=== PATIENT | male | born 1990 | race African-American/Black ===

== ENCOUNTER 2019-04-08 10:06 | Emergency (ER) | payer SELFPAY ==
[2019-04-08 10:25] VITALS: BP 120/94
[2019-04-08] MEDS ORDERED: METOCLOPRAMIDE HCL INJ/PF 10 MG/2 ML SDV IV ONE (12:15)
--- NOTE | 2019-04-08 12:20 | ER Document Report ---
ED Medical Screen (RME) - General Chief Complaint: Nausea/Vomiting Stated Complaint: NAUSEA/VOMITING Time Seen by Provider: 04/08/19 12:09 Notes: HPI: 28-year-old male presenting for vomiting for 2 weeks. States he has history of reflux. Complains of epigastric abdominal pain. States that he has been seen 9 times in the last 11 days at [facility]. States that he is not taking any medicines. States he cannot stop throwing up but most importantly of all he needs a shower and that he will feel better I have greeted and performed a rapid initial assessment of this patient. A comprehensive ED assessment and evaluation of the patient, analysis of test results and completion of the medical decision making process will be conducted by additional ED providers PHYSICAL EXAMINATION: Very limited by patient cooperation GENERAL: Well-appearing, well-nourished and in mild acute distress. HEAD: Atraumatic, normocephalic. EYES: sclera anicteric, conjunctiva are normal. ENT: Moist mucous membranes. NECK: Normal range of motion LUNGS: Normal work of breathing HEART: 2+ radial pulses bilaterally ABD: limited by positioning for exam in triage. Minimal epigastric pain on palpation EXTREMITIES: no pitting or edema. No cyanosis. NEUROLOGICAL: No focal neurological deficits. Moves all extremities spontaneously and on command. PSYCH: Aggressive mood, normal affect. SKIN: Warm, Dry, normal turgor, no rashes or lesions noted. 28-year-old male very aggressive in the lobby requiring security to be called prior to triage. Patient was throwing himself on the floor screaming at everyone. When I went to evaluate the patient he is throwing himself around in his wheelchair stating repeatedly that he needs a bed and he needs a shower. Patient will not answer many of my questions directly. I informed the patient that the ER is full at this time and I cannot rule the patient to another part of the hospital for a shower or a bed at this time. I informed the patient that we will do our best to medically screened his complaint. We will need to obtain screening lab work and give him medication for his nausea. Patient states multiple times that we will not be able to draw blood because he has poor veins and that he needs a shower and a bed. I informed the patient that we will start the screening process at front and will work to get the patient to bed in the acute ER soon as one is available for him. After I left the room to put the patient's orders in the nurse came to me and informed me that the patient got up from his wheelchair and was able to ambulate out of the emergency department loudly stating that he did not want any further care or treatment here. He was able to walk from the front [facility] area out the front door without any vomiting episodes. Patient remained verbally aggressive with staff on the way out of the ER Physical Exam - Vital signs Vitals: Temp Pulse Resp BP Pulse Ox 98.3 F 118 H 20 120/94 H 100 04/08/19 10:04/08/19 10:04/08/19 10:04/08/19 10:04/08/19 10:21 Course - Vital Signs Vital signs: Temp Pulse Resp BP Pulse Ox 98.3 F 118 H 20 120/94 H 100 04/08/19 10:04/08/19 10:04/08/19 10:04/08/19 10:04/08/19 10:21
== END 2019-04-08 12:15 | disposition left against medical advice (07) ==
LOC: ER 10:06
DX: Z53.21 Procedure and treatment not carried out due to patient leaving prior to being seen by health care provider (principal); R11.2 Nausea with vomiting, unspecified
CPT/HCPCS: 99281

== ENCOUNTER 2019-11-15 14:31 | Emergency (ER) | payer SELFPAY ==
[2019-11-15] MEDS ORDERED: NORMAL SALINE 1000 ML 1,000 ML IV PRN (15:08)
--- NOTE | 2019-11-15 15:34 | ER Document Report ---
ED GI/ - General Chief Complaint: Abdominal Pain Stated Complaint: ABDOMINAL PAIN Time Seen by Provider: 11/15/19 14:57 Notes: HPI: 28-year-old male who presents today with some nausea and vomiting starting last night into today. This was after using marijuana. He denies any other drug abuse or alcohol intake. He denies any chest pain, abdominal pain, cough, shortness of breath, dysuria, flank pain. ROS: See HPI All other review of systems reviewed and otherwise negative Reviewed vital signs and nursing note as charted by RN. PHYSICAL EXAM: CONSTITUTIONAL: Alert and oriented and responds appropriately to questions. Well-appearing; well-nourished HEAD: Normocephalic; atraumatic EYES: sclerae non-icteric ENT: Normal nose; no rhinorrhea; moist mucous membranes; pharynx without lesions noted NECK: Supple without meningismus; non-tender; no cervical lymphadenopathy, no masses CARD: Regular rate and rhythm; no murmurs; symmetric distal pulses RESP: Normal chest excursion without splinting or tachypnea; breath sounds clear and equal bilaterally ABD/GI: Normal bowel sounds; non-distended; soft, nontender currently to deep palpation of all 4 quadrants of the abdomen BACK: The back appears normal and is non-tender to palpation EXT: Normal ROM in all joints; non-tender to palpation; no edema SKIN: No acute lesions noted NEURO: CN 2-12 intact; 5/5 bilateral upper and lower extremity strength with sensation intact to light touch PSYCH: The patient's mood and manner are appropriate. Grooming and personal hygi mando are appropriate. TRAVEL OUTSIDE OF THE [place] IN LAST 30 DAYS: No - unknown - Related Data Allergies/Adverse Reactions: No Known Allergies Allergy (Unverified 11/15/19 15:49) Past Medical History - Social History Smoking Status: Unknown if Ever Smoked Family History: Reviewed & Not Pertinent Physical Exam - Vital signs Vitals: Temp 98.1 F 11/15/19 14:32 Course - Re-evaluation Re-evalutation: Given the history and physical examination in this well-appearing male in no acute distress with some vomiting after ingesting marijuana, with no abdominal discomfort on repeat exam, cough or shortness of breath, will obtain basic labs, liver panel and lipase, provide fluids and nausea medications, and reassess. Patient currently is in no acute distress. I do not believe any imaging or laboratory work is necessary at this moment. 11/15/19 17:44 Labs as recorded. Abdomen is still soft and nontender. No vomiting here. Vital signs are stable. Patient will be discharged home with strict return precautions and follow-up with the primary care physician. - Vital Signs Vital signs: Temp Pulse Resp BP Pulse Ox 98.1 F 11/15/19 14:32 - Laboratory Result Diagrams: 11/15/19 15:30 11/15/19 15:30 Laboratory results interpreted by me: 11/15/19 15:30 WBC 15.2 H Plt Count 125 L Seg Neuts % (Manual) 89 H Lymphocytes % (Manual) 5 L Abs Neuts (Manual) 13.5 H Discharge - Discharge Clinical Impression: Nausea and vomiting Qualifiers: Vomiting type: unspecified Vomiting Intractability: non-intractable Qualified Code(s): R11.2 - Nausea with vomiting, unspecified Condition: Good Disposition: HOME, SELF-CARE Additional Instructions: Come back immediately for any return of vomiting, yoav pain, fevers, excessive diarrhea, lightheadedness or dizziness, or any other acute problems. Prescriptions: Ondansetron [Zofran Odt 4 mg Tablet] 1 tab PO Q6H #15 tab.[email or web address]
[2019-11-15 16:44] LABS: HEMATOCRIT 49.4 % (37.9-51.0); HEMOGLOBIN 16.5 g/dL (13.5-17.0); MEAN CORPUSCULAR HEMOGLOBIN 30.8 pg (27.0-33.4); MEAN CORPUSCULAR HGB CONC 33.5 g/dL (32.0-36.0); MEAN CORPUSCULAR VOLUME 92 fl (80-97); PLATELET COUNT 125 10^3/uL (150-450); RED BLOOD COUNT 5.38 10^6/uL (4.35-5.55); RED CELL DISTRIBUTION WIDTH 13.6 % (11.5-14.0); WHITE BLOOD COUNT 15.2 10^3/uL (4.0-10.5)
[2019-11-15 16:58] LABS: ALBUMIN 4.5 g/dL (3.5-5.0); ALKALINE PHOSPHATASE 65 U/L (38-126); ANION GAP 15 (5-19); ASPARTATE AMINO TRANSFERASE 25 U/L (17-59); BILIRUBIN,DIRECT 0.3 mg/dL (0.0-0.4); BILIRUBIN,TOTAL 0.8 mg/dL (0.2-1.3); BLOOD UREA NITROGEN 19 mg/dL (7-20); CALCIUM 9.9 mg/dL (8.4-10.2); CARBON DIOXIDE 22 mmol/L (22-30); CHLORIDE 105 mmol/L (98-107); GLUCOSE 108 mg/dL (75-110); POTASSIUM 3.9 mmol/L (3.6-5.0)
[2019-11-15 17:07] LABS: ABSOLUTE LYMPHOCYTES# (MANUAL) 0.8 10^3/uL (0.5-4.7); ABSOLUTE MONOCYTES # (MANUAL) 0.9 10^3/uL (0.1-1.4); BASOPHILS % (MANUAL) 0 % (0-2); EOSINOPHILS % (MANUAL) 0 % (0-6); LYMPHOCYTES % (MANUAL) 5 % (13-45); MONOCYTES % (MANUAL) 6 % (3-13); SEGMENTED NEUTROPHILS % (MAN) 89 % (42-78); TOTAL CELLS COUNTED 100
[2019-11-15 17:08] LABS: PLATELET COMMENT DECREASED; RBC MORPHOLOGY COMMENT NORMO-CYTIC/CHROMIC
[2019-11-15] MEDS ORDERED: ONDANSETRON ODT 4 MG TAB (6 TAB/ER DISP) PO PRN (18:47)
== END 2019-11-15 18:08 | disposition home or self-care (01) ==
LOC: ER 14:31
DX: R11.2 Nausea with vomiting, unspecified (principal); R10.9 Unspecified abdominal pain
CPT/HCPCS: 99283; 96360; 36415; 83690; 85025; 80053; J7030

== ENCOUNTER 2019-11-16 05:36 | Emergency (ER) | payer SELFPAY ==
[2019-11-16] MEDS ORDERED: ONDANSETRON HCL INJ/PF 4 MG/2 ML SDV IV ONE (07:24)
[2019-11-16] MEDS ORDERED: NORMAL SALINE 1000 ML 1,000 ML IV ONE ×2 (07:24→14:36)
[2019-11-16] MEDS ORDERED: HALOPERIDOL LACTATE INJ 5 MG/1 ML VIAL IV ONE (07:26)
[2019-11-16] MEDS ORDERED: MORPHINE SULFATE 10 MG/ML INJ IV ONE (07:26)
[2019-11-16] MEDS ORDERED: PROMETHAZINE HCL INJ 50 MG/1 ML VIAL IM STA (07:27)
[2019-11-16] MEDS ORDERED: PANTOPRAZOLE SODIUM 40 MG VIAL IV ONE (07:29)
[2019-11-16 08:22] LABS: ABSOLUTE LYMPHOCYTES (AUTO) 1.2 10^3/uL (0.5-4.7); ABSOLUTE MONOCYTES (AUTO) 0.8 10^3/uL (0.1-1.4); ABSOLUTE NEUT (AUTO) 12.7 10^3/uL (1.7-8.2); BASOPHILS % (AUTO) 0.3 % (0-2); HEMATOCRIT 48.6 % (37.9-51.0); HEMOGLOBIN 16.7 g/dL (13.5-17.0); MEAN CORPUSCULAR HEMOGLOBIN 31.6 pg (27.0-33.4); MEAN CORPUSCULAR HGB CONC 34.4 g/dL (32.0-36.0); MEAN CORPUSCULAR VOLUME 92 fl (80-97); MONOCYTES % (AUTO) 5.7 % (3-13); PLATELET COUNT 139 10^3/uL (150-450); RED CELL DISTRIBUTION WIDTH 13.7 % (11.5-14.0); TOTAL CELLS COUNTED % (AUTO) 100 %; WHITE BLOOD COUNT 14.8 10^3/uL (4.0-10.5)
--- NOTE | 2019-11-16 08:24 | RADIOLOGY REPORT (SQ) ---
EXAM DESCRIPTION: ACUTE ABDOMEN SERIES IMAGES COMPLETED DATE/TIME: 11/16/2019 8:02 am REASON FOR STUDY: abd pain/n/v COMPARISON: None. NUMBER OF VIEWS: Three views. TECHNIQUE: Frontal chest, supine abdomen and upright/decubitus abdomen radiographic images acquired. LIMITATIONS: None. FINDINGS: CHEST: Questionable pneumomediastinum at the level of the thoracic inlet and lower neck. No focal consolidation, pleural effusion or pneumothorax. Normal cardiomediastinal silhouette otherw ise. FREE AIR: None. No abnormal gas collections. BOWEL GAS PATTERN: Nonobstructive pattern. No dilated loops or air fluid levels. CALCIFICATIONS: No suspicious calcifications. HARDWARE: None in the abdomen. SOFT TISSUES: No gross mass or suggestion of organomegaly. BONES: No acute fracture. No worrisome bone lesions. OTHER: No other significant finding. IMPRESSION: Apparent pneumomediastinum at the level of the thoracic inlet and lower neck, etiology u ncertain. No pneumothorax or other evidence of acute intrathoracic process. CT could be considered for further characterization. No evidence of acute intra-abdominal/pelvic process. TECHNICAL DOCUMENTATION: JOB ID: [id number] 2010 [employer]- All Rights Reserved Reading location - IP/workstation name: [email or web address]
[2019-11-16 08:36] LABS: ALBUMIN 4.5 g/dL (3.5-5.0); ALKALINE PHOSPHATASE 73 U/L (38-126); ASPARTATE AMINO TRANSFERASE 29 U/L (17-59); BILIRUBIN,DIRECT 0.4 mg/dL (0.0-0.4); BLOOD UREA NITROGEN 23 mg/dL (7-20); CARBON DIOXIDE 16 mmol/L (22-30); CHLORIDE 107 mmol/L (98-107); GLUCOSE 165 mg/dL (75-110); POTASSIUM 3.7 mmol/L (3.6-5.0); TOTAL PROTEIN 7.4 g/dL (6.3-8.2)
[2019-11-16 08:39] LABS: ALCOHOL < 10 mg/dL (NONE DETECTED)
[2019-11-16 08:51] LABS: ANION GAP 21 (5-19)
--- NOTE | 2019-11-16 10:50 | RADIOLOGY REPORT (SQ) ---
EXAM DESCRIPTION: CT CHEST WITH IMAGES COMPLETED DATE/TIME: 11/16/2019 10:36 am REASON FOR STUDY: pneumomediastinum on CXR COMPARISON: Same day radiograph TECHNIQUE: CT scan of the chest performed using helical scanning technique with dynamic intravenous contrast injection. Images reviewed with lung, soft tissue and bone windows. Reconstructed coronal and sagittal MPR and MIP images reviewed. All images stored on PACS. All CT scanners at this facility use dose modulation, iterative reconstruction, and/or weight based d osing when appropriate to reduce radiation dose to as low as reasonably achievable (ALARA). [facility]: Dose Right [facility]: CareDose [facility]: Dose Right [facility]: Teradose 4D [facility]: [employer] CONTRAST TYPE AND DOSE: contrast/concentration: Isovue 350.00 mmol/ml; Total Contrast Delivered: 100 .0 ml; Total Saline Delivered: 65.0 ml RENAL FUNCTION: None required. The patient is less than 50 years old. RADIATION DOSE: CT Rad equipment meets quality standard of care and radiation dose reduction techniq ues were employed. CTDIvol: 7.0 - 11.7 mGy. DLP: 1422 mGy-cm. . LIMITATIONS: None. FINDINGS: LUNGS AND PLEURA: No opacities, nodules, masses. No pneumothorax. No effusions. HILAR AND MEDIASTINAL STRUCTURES: Pneumomediastinum about the straightening esophagus which tracks moreno periorly into the thoracic inlet and lower neck. Source is not readily identifiable. HEART AND VASCULAR STRUCTURES: No aneurysm or dissection. No central pulmonary emboli. No pericardi al effusion. HARDWARE: None in the chest. UPPER ABDOMEN: See separate report of the CT of the abdomen. THYROID AND OTHER SOFT TISSUES: Unremarkable thyroid. Pneumomediastinum with soft tissue gas within the neck. BONES: No acute bony abnormality. No suspicious lytic or blastic osseous lesions. OTHER: No other significant finding. IMPRESSION: 1. Pneumomediastinum about the esophagus and trachea which tracks superiorly into the t horacic inlet and lower neck. Source is not readily identifiable. Considerations include is barotra lisa, possibly from forced expiration against a closed glottis, esophageal injury or penetrating traum a. Recommend correlation with patient history. 2. No pneumothorax or other evidence of acute intrathoracic injury. TECHNICAL DOCUMENTATION: JOB ID: [id number] Quality ID # [id number]: Final reports with documentation of one or more dose reduction techniques (e.g., Au tomated exposure control, adjustment of the mA and/or kV according to patient size, use of iterative reconstruction technique) 2010 [employer] All Rights Reserved Reading location - IP/workstation name: [email or web address]
--- NOTE | 2019-11-16 10:54 | RADIOLOGY REPORT (SQ) ---
EXAM DESCRIPTION: CT ABD/PELVIS WITH IV ONLY IMAGES COMPLETED DATE/TIME: 11/16/2019 10:36 am REASON FOR STUDY: N/V/ pneumomediastinum COMPARISON: None. TECHNIQUE: CT scan of the abdomen and pelvis performed using helical scanning technique with dynamic intravenous contrast injection. No oral contrast. Images reviewed with lung, soft tissue, and bone windows. Reconstructed coronal and sagittal MPR images reviewed. Delayed images for evaluation of the urinary system also acquired. All images stored on PACS. All CT scanners at this facility use dose modulation, iterative reconstruction, and/or weight based d osing when appropriate to reduce radiation dose to as low as reasonably achievable (ALARA). [facility]: Dose Right [facility]: CareDose [facility]: Dose Right [facility]: Teradose 4D [facility]: [employer] CONTRAST TYPE AND DOSE: See chest RENAL FUNCTION: None required. The patient is less than 50 years old. RADIATION DOSE: . LIMITATIONS: None. FINDINGS: LOWER CHEST: See separate report of the CT of the chest. LIVER: Normal size. No masses. No dilated ducts. SPLEEN: Normal size. No focal lesions. PANCREAS: No masses. No significant calcifications. No adjacent inflammation or peripancreatic fluid collections. Pancreatic duct not dilated. GALLBLADDER: No identified stones by CT criteria. No inflammatory changes to suggest cholecystitis. ADRENAL GLANDS: No significant masses or asymmetry. RIGHT KIDNEY AND URETER: No solid masses. No significant calcifications. No hydronephrosis or hyd roureter. LEFT KIDNEY AND URETER: No solid masses. No significant calcifications. No hydronephrosis or hydr oureter. AORTA AND VESSELS: No aneurysm. No dissection. Renal arteries, SMA, celiac without stenosis. RETROPERITONEUM: Partially visualize pneumomediastinum about the distal esophagus, better seen on sa day chest CT. No retroperitoneal adenopathy, hemorrhage or masses. BOWEL AND PERITONEAL CAVITY: No masses or inflammatory changes. No free fluid or peritoneal masses. APPENDIX: Not clearly visualized. PELVIS: No mass. No free fluid. Normal bladder. ABDOMINAL WALL: No masses. No hernias. BONES: No acute bony abnormality. No suspicious osseous lesions. OTHER: No other significant finding. IMPRESSION: 1. Partially visualized pneumomediastinum better seen on same day chest CT. 2. No other evidence of acute intra-abdominal/pelvic process. TECHNICAL DOCUMENTATION: JOB ID: [id number] Quality ID # [id number]: Final reports with documentation of one or more dose reduction techniques (e.g., Au tomated exposure control, adjustment of the mA and/or kV according to patient size, use of iterative reconstruction technique) 2010 [employer]- All Rights Reserved Reading location - IP/workstation name: [email or web address]
--- NOTE | 2019-11-16 12:01 | ER Document Report ---
Entered by ASHLEE MELISSA SCRIBE 11/16/19 0619 Acting as scribe for:MELE WEAVER MD ED GI/ - General Chief Complaint: Vomiting Stated Complaint: VOMTING Mode of Arrival: Wheelchair Information source: Patient Notes: This 28 year old male patient with a history of GERD presents to the ED today with complaints of nausea and vomiting that started yesterday and continues in the ED today. Patient was actually seen here yesterday for the same complaint and admitted that his symptoms started after smoking marijuana. He was treated symptomatically and discharged with a prescription for Zofran and return precautions. He reports that he came back for evaluation because he has been vomiting constantly and now feels a burning sensation from his abdomen up to his throat. Denies recent marijuana use or diarrhea. TRAVEL OUTSIDE OF THE [place] IN LAST 30 DAYS: No - unknown - Related Data Allergies/Adverse Reactions: No Known Allergies Allergy (Unverified 11/15/19 15:49) Past Medical History - General Information source: Patient, [facility] Records - Social History Smoking Status: Unknown if Ever Smoked Smoking Education Provided: No Drug Abuse: Marijuana Family History: Reviewed & Not Pertinent Patient has suicidal ideation: No Patient has homicidal ideation: No GI Medical History: Reports: Hx Gastroesophageal Reflux Disease Review of Systems - Review of Systems Constitutional: No symptoms reported EENT: See HPI, Throat pain Cardiovascular: No symptoms reported Respiratory: No symptoms reported Gastrointestinal: See HPI, Abdominal pain, Nausea, Vomiting. denies: Diarrhea Genitourinary: No symptoms reported Male Genitourinary: No symptoms reported Musculoskeletal: No symptoms reported Skin: No symptoms reported Hematologic/Lymphatic: No symptoms reported Neurological/Psychological: No symptoms reported -: Yes All other systems reviewed and negative Physical Exam - Vital signs Vitals: Temp Pulse Resp BP Pulse Ox 98.5 F 71 18 123/101 H 98 11/16/19 05:43 11/16/19 05:43 11/16/19 05:43 11/16/19 05:43 11/16/19 05:43 - General General appearance: Alert In distress: Moderate - HEENT Head: Normocephalic, Atraumatic Eyes: Normal Pupils: PERRL - Respiratory Respiratory status: No respiratory distress Chest status: Nontender Breath sounds: Normal Chest palpation: Normal - Cardiovascular Rhythm: Regular Heart sounds: Normal auscultation, S1 appreciated, S2 appreciated Murmur: No Friction rub: No Gallop: None auscultated - Abdominal Inspection: Normal Distension: No distension Bowel sounds: Normal Tenderness: Tender - Diffuse abdominal tenderness to palpation, Other - Abdomen soft Organomegaly: No organomegaly - Back Back: Normal, Nontender - Extremities General upper extremity: Normal inspection General lower extremity: Normal inspection. No: Edema - Neurological Neuro grossly intact: Yes Orientation: AAOx4 [place] Coma Scale Eye Opening: Spontaneous [place] Coma Scale Verbal: Oriented [place] Coma Scale Motor: Obeys Commands [place] Coma Scale Total: 15 - Psychological Associated symptoms: Normal affect, Normal mood - Skin Skin Temperature: Warm Skin Moisture: Moist Skin Color: Normal Course - Re-evaluation Re-evalutation: 11/16/19 16:36 Patient resting comfortably not showing any signs of GI upset or distress at this time no further nausea and vomiting denies any chest pain and is not having any signs of shortness of breath or hemodynamic compromise. - Vital Signs Vital signs: Temp Pulse Resp BP Pulse Ox 98.5 F 71 13 139/79 H 98 11/16/19 05:43 11/16/19 05:43 11/16/19 12:00 11/16/19 10:01 11/16/19 12:00 11/16/19 16:36 Vital signs are stable sats 98% afebrile. - Laboratory Result Diagrams: 11/16/19 06:00 11/16/19 06:00 Laboratory results interpreted by me: 11/16/19 11/16/19 11/16/19 06:00 06:00 11:57 WBC 14.8 H Plt Count 139 L Lymph % (Auto) 8.0 L Absolute Neuts (auto) 12.7 H Seg Neutrophils % 86.0 H Carbon Dioxide 16 L Anion Gap 21 H BUN 23 H Glucose 165 H Urine Protein 100 H Urine Ketones 80 H Pretorius disclosed a elevated white blood cell count of 14.8 and 80 urine ketones and 100 urine protein noted with a glucose of 165 and a BUN of 23. Carbon dioxide was 16. Patient has cyclical vomiting syndrome due to marijuana patient is white blood cell counts most likely due to demargination with the intensity of his nausea and vomiting. In addition patient developed a pneumo mediastinum as result of his violent vomiting episodes. - Diagnostic Test Radiology reviewed: Image reviewed, Reports reviewed Radiology results interpreted by me: 11/16/19 11:00 Acute Abdomen Series 11/16/19 07:22 IMPRESSION: Apparent pneumomediastinum at the level of the thoracic inlet and lower neck, etiology uncertain. No pneumothorax or other evidence of acute intrathoracic process. CT could be considered for further characterization. No evidence of acute intra-abdominal/pelvic process. Chest CT 11/16/19 09:41 IMPRESSION: 1. Pneumomediastinum about the esophagus and trachea which tracks superiorly into the thoracic inlet and lower neck. Source is not readily identifiable. Considerations include is barotrauma, possibly from forced expir ation against a closed glottis, esophageal injury or penetrating trauma. Recommend correlation with patient history. 2. No pneumothorax or other evidence of acute intrathoracic injury. Abdomen/Pelvis CT 11/16/19 09:42 IMPRESSION: 1. Partially visualized pneumomediastinum better seen on same day chest CT. 2. No other evidence of acute intra-abdominal/pelvic process. 11/16/19 16:37 Acute Abdomen Series 11/16/19 07:22 IMPRESSION: Apparent pneumomediastinum at the level of the thoracic inlet and lower neck, etiology uncertain. No pneumothorax or other evidence of acute intrathoracic process. CT could be considered for further characterization. No evidence of acute intra-abdominal/pelvic process. Chest CT 11/16/19 09:41 IMPRESSION: 1. Pneumomediastinum about the esophagus and trachea which tracks superiorly into the thoracic inlet and lower neck. Source is not readily ident ifiable. Considerations include is barotrauma, possibly from forced expiration against a closed glottis, esophageal injury or penetrating trauma. Recommend correlation with patient history. 2. No pneumothorax or other evidence of acute intrathoracic injury. Abdomen/Pelvis CT 11/16/19 09:42 IMPRESSION: 1. Partially visualized pneumomediastinum better seen on same day chest CT. 2. No other evidence of acute intra-abdominal/pelvic process. Esophagus X-Ray 11/16/19 14:47 IMPRESSION: 1. Unremarkable single contrast esophagram. No evidence of esophageal perforation. 2. Pneumomediastinum again noted. Patient had an acute abdominal series done which showed that there was a apparent numerous mediastinum at the level of the thoracic inlet and lower neck etiology was uncertain at that time CT scans were done of chest abdomen and pelvis which shows no evidence of any acute intra-abdominal pelvic process numerous mediastinum was also noted on CT scan of the chest. CT scan of chest showed pneumomediastinum about the esophagus and trachea track superiorly into the thoracic inlet there was no other acute trauma seen. Barium swallow shows unremarkable single contrast esophagram there was no evidence of esophageal perforation and pneumomediastinum was again noted. Patient is medically stable and not showing any signs of hemodynamic or thoracic pulmonary distress. Discharge - Discharge Clinical Impression: Intractable cyclical vomiting syndrome, Pneumomediastinum Condition: Stable Disposition: HOME, SELF-CARE Instructions: Vomiting ([facility]) Prescriptions: Ondansetron [Zofran Odt 4 mg Tablet] 1 - 2 tab PO Q4H PRN #15 tab.rapdis PRN Reason: For Nausea/Vomiting I personally performed the services described in the documentation, reviewed and edited the documentation which was dictated to the scribe in my presence, and it accurately records my words and actions.
[2019-11-16 12:08] VITALS: BP 139/79
[2019-11-16 12:23] LABS: APPEARANCE,URINE CLEAR; BILIRUBIN,URINE NEGATIVE (NEGATIVE); COLOR,URINE YELLOW; GLUCOSE, URINE NEGATIVE (NEGATIVE); KETONES,URINE 80 mg/dL (NEGATIVE); LEUKOCYTE ESTERASE,URINE NEGATIVE (NEGATIVE); NITRITE,URINE NEGATIVE (NEGATIVE); PROTEIN,URINE 100 mg/dL (NEGATIVE); UROBILINOGEN,URINE NEGATIVE mg/dL (<2.0)
[2019-11-16 12:24] LABS: URINE SPECIFIC GRAVITY > 1.060
[2019-11-16 12:35] LABS: URINE AMPHETAMINES SCREEN NEGATIVE; URINE BARBITURATES SCREEN NEGATIVE; URINE BENZODIAZEPINES SCREEN NEGATIVE; URINE COCAINE SCREEN NEGATIVE; URINE METHADONE SCREEN NEGATIVE; URINE PHENCYCLIDINE SCREEN NEGATIVE
[2019-11-16 12:36] LABS: URINE MARIJUANA (THC) SCREEN UNCONFIRMED POSITIVE
--- NOTE | 2019-11-16 16:28 | RADIOLOGY REPORT (SQ) ---
EXAM DESCRIPTION: BARIUM SWALLOW ESOPHAGUS IMAGES COMPLETED DATE/TIME: 11/16/2019 4:17 pm REASON FOR STUDY: pneumomdiastinum due to coughing COMPARISON: None. TECHNIQUE: Under fluoroscopic guidance, patient ingested water soluble contrast. Fluoroscopic spot i mages and routine radiographic images acquired and stored on PACS. 12 MM BARIUM TABLET GIVEN: No. LIMITATIONS: None. FLUOROSCOPY TIME: 2 minutes 12 images saved to PACS. FINDINGS: NEUROMUSCULAR COORDINATION OF SWALLOW: Normal. No aspiration. ESOPHAGEAL MOTILITY: Normal peristalsis. No esophageal spasm. ESOPHAGEAL MUCOSA: Normal mucosa without masses or ulceration. GASTRO-ESOPHAGEAL JUNCTION: No hiatal hernia or reflux. NON-GI TRACT STRUCTURES: No significant finding. OTHER: Pneumomediastinum again noted. IMPRESSION: 1. Unremarkable single contrast esophagram. No evidence of esophageal perforation. 2. Pneumomediastinum again noted. COMMENT: Quality ID 145: Final reports for procedures using fluoroscopy that document radiation exp osure indices, or exposure time and number of fluorographic images (if radiation exposure indices are not available) TECHNICAL DOCUMENTATION: JOB ID: [id number] 2010 [employer]- All Rights Reserved Reading location - IP/workstation name: [email or web address]
== END 2019-11-16 16:53 | disposition home or self-care (01) ==
LOC: ER 05:36
DX: F12.188 Cannabis abuse with other cannabis-induced disorder (principal); R11.15 Cyclical vomiting syndrome unrelated to migraine; J98.2 Interstitial emphysema; R10.9 Unspecified abdominal pain; R10.817 Generalized abdominal tenderness; D72.829 Elevated white blood cell count, unspecified
CPT/HCPCS: 99285; 96372; 96361; 96374; 96375; 36415; 80307 ×2; 83605; 83690; 85025; 80053; 81001; 74022; 74220; 71260; 74177; J1630; J2270; C9113; J2550; J7030